=== PATIENT | male | born 1980 | race Hispanic/Latino ===

== ENCOUNTER 2018-04-23 15:03 | Inpatient (IN) | payer BC, OTHER ==
[~2018-04-23] VITALS: Ht 175.3 cm; Wt 76.7 kg
[2018-04-23] MEDS ORDERED: SODIUM CHLORIDE 0.9% 1000ML 1,000 ML IV ONE (15:40)
[2018-04-23] MEDS ORDERED: ONDANSETRON HCL 4 MG/2 ML VIAL ONE (15:40)
[2018-04-23] MEDS ORDERED: MORPHINE SULFATE 4 MG/1ML SYG ONE ×2 (15:40→17:48)
[2018-04-23 16:07] LABS: BASOPHILS % (AUTO) 0.1 % (0.0-5.0); EOSINOPHILS % (AUTO) 0.1 % (0.0-8.0); HEMATOCRIT 26.8 % (42-54); LYMPHOCYTES % (AUTO) 7.5 % (21.0-51.0); MEAN CORPUSCULAR HEMOGLOBIN 30.3 pg (27.0-33.0); MEAN CORPUSCULAR HGB CONC 33.2 g/dL (32.0-36.0); MEAN CORPUSCULAR VOLUME 91.2 fL (79-99); MONOCYTES % (AUTO) 8.2 % (3.0-13.0); NEUTROPHILS % (AUTO) 84.1 % (40.0-77.0); NUCLEATED RED BLOOD CELLS 0.1 % (0.0-0.19); PLATELET COUNT (AUTO) 532 K/uL (130-400); RED BLOOD CELL COUNT(AUTO) 2.94 MIL/uL (4.50-6.20); RED CELL DISTRIBUTION WIDTH 14.9 % (11.0-15.5)
[2018-04-23] MEDS ORDERED: LIDOCAINE HCL 1% 20 ML VIAL ONE (16:10)
[2018-04-23 16:23] LABS: ALBUMIN 1.8 g/dL (3.5-5.0); BILIRUBIN,TOTAL 0.2 mg/dL (0.2-1.0); CREATININE 2.7 mg/dL (0.5-1.5); POTASSIUM 3.8 mmol/L (3.5-5.1)
[2018-04-23 17:11] LABS: ERYTHROCYTE SEDIMENTATION RATE 150 MM/HR (0-15)
[2018-04-23] MEDS ORDERED: INSULIN HUMULIN R 100 UNIT/ML 3ML ONE ×2 (17:50→21:20)
[2018-04-23] MEDS ORDERED: ZOSYN 3.375GM+NS 50ML 50 ML IV ONE (18:36)
[2018-04-23] MEDS ORDERED: SODIUM CHLORIDE 0.9% 50 ML IV ONE (18:36)
[2018-04-23 18:40] LABS: ABG BASE EXCESS -6.1 mmol/L (-2.0-3.0); ABG HCO3 19.4 mmol/L (21.0-28.0); ABG OXYGEN SATURATION 97.3 % (95.0-99.0); ABG PCO2 38 mmHg (35-48)
[2018-04-23 20:03] LABS: APPEARANCE BODY FLUID TURBID (CLEAR); BODY FLUID WBC 45540 /cu. mm.; COLOR,BODY FLUID YELLOW (LT YELLOW); SPECIMENTYPE,BODY FLUID SYNOVIAL; TOTAL VOLUME,BODY FLUID 9 mL
[2018-04-23 20:04] LABS: BODY FLUID RBC 2475 /cu. mm.
[2018-04-23] MEDS: SODIUM CHLORIDE 0.9% 1000ML 1,000 ML IV SCH ×2 (20:05→23:04)
[2018-04-23] MEDS ORDERED: ONDANSETRON HCL 4 MG/2 ML VIAL IV PRN (20:15)
[2018-04-23] MEDS ORDERED: ACETAMINOPHEN 325 MG TAB PO PRN (20:15)
[2018-04-23] MEDS ORDERED: VANCOMYCIN 1GM+NS 250ML 250 ML IV SCH (20:15)
[2018-04-23 20:27] LABS: BF LYMPHOCYTE 2 %; BF OTHER CELLS 1
[2018-04-23] MEDS ORDERED: VANCOMYCIN PROTOCOL PER PHARMACY IV SCH (20:45)
[2018-04-23] MEDS: ZOSYN 3.375GM+NS 50ML 50 ML IV SCH (21:00)
[2018-04-23] MEDS ORDERED: VANCOMYCIN 1GM+NS 250ML 250 ML IV ONE (21:32)
[2018-04-23 21:38] VITALS: BP 152/86
[2018-04-23] MEDS ORDERED: METF-444 PO (21:52)
[2018-04-23] MEDS: MORPHINE SULFATE 4 MG/1ML SYG IV PRN (22:21)
[2018-04-23] MEDS: ENOXAPARIN SODIUM 40 MG/0.4 ML SYRINGE SQ SCH (22:21)
[2018-04-23] MEDS: FAMOTIDINE 20MG TAB 20 MG TAB PO SCH (22:21)
[2018-04-23 23:25] VITALS: BP 123/69
[2018-04-24] MEDS: MORPHINE SULFATE 4 MG/1ML SYG IV PRN ×5 (03:36→22:05)
[2018-04-24 03:40] VITALS: BP 161/93
[2018-04-24] MEDS: ZOSYN 3.375GM+NS 50ML 50 ML IV SCH ×3 (04:39→20:44)
[2018-04-24] MEDS: INSULIN HUMULIN R 100 UNIT/ML 3ML SQ SCH ×4 (06:01→20:44)
[2018-04-24] MEDS ORDERED: COMPOUND IV REFRIGERATED 1 EACH IVSOLN MISC PRN (06:45)
[2018-04-24 07:38] LABS: BASOPHILS % (AUTO) 0.3 % (0.0-5.0); EOSINOPHILS % (AUTO) 0.8 % (0.0-8.0); HEMATOCRIT 24.6 % (42-54); LYMPHOCYTES % (AUTO) 17.4 % (21.0-51.0); MEAN CORPUSCULAR HEMOGLOBIN 30.2 pg (27.0-33.0); MEAN CORPUSCULAR HGB CONC 33.9 g/dL (32.0-36.0); MEAN CORPUSCULAR VOLUME 88.9 fL (79-99); MONOCYTES % (AUTO) 8.5 % (3.0-13.0); PLATELET COUNT (AUTO) 501 K/uL (130-400); RED BLOOD CELL COUNT(AUTO) 2.76 MIL/uL (4.50-6.20); RED CELL DISTRIBUTION WIDTH 14.6 % (11.0-15.5); WHITE BLOOD COUNT (AUTO) 7.1 K/uL (4.8-10.8)
[2018-04-24 07:43] LABS: CREATININE 1.7 mg/dL (0.5-1.5); POTASSIUM 3.5 mmol/L (3.5-5.1)
[2018-04-24 07:50] LABS: ALBUMIN 1.5 g/dL (3.5-5.0); BILIRUBIN,TOTAL 0.2 mg/dL (0.2-1.0); TOTAL PROTEIN, SERUM 7.6 g/dL (6.0-8.3)
[2018-04-24] MEDS: HYDRALAZINE HCL 20 MG/ML VIAL IV PRN (07:55)
[2018-04-24 08:03] LABS: HEMOGLOBIN A1C 6.9 % (4.0-6.0)
[2018-04-24 08:55] VITALS: BP 122/75
[2018-04-24] MEDS: ENOXAPARIN SODIUM 40 MG/0.4 ML SYRINGE SQ SCH ×2 (08:56→20:44)
[2018-04-24] MEDS: FAMOTIDINE 20MG TAB 20 MG TAB PO SCH ×2 (08:56→20:44)
[2018-04-24] MEDS: LISINOPRIL 10 MG TABLET PO SCH (08:57)
[2018-04-24] MEDS: SODIUM CHLORIDE 0.9% 1000ML 1,000 ML IV SCH ×3 (09:25→20:45)
[2018-04-24 12:08] VITALS: BP 147/91
--- NOTE | 2018-04-24 12:18 | NUR ---
DCP CM met with pt discussed dc plans. Pt is independent prior to admission, lives at home with mother and step dad. Pt denies any equipments/services. Pt is a self pay, HAC assisting, states used to go to [facility] but it has been a while, pt give community resources lists as well has [employer] program for cheaper medications. Pt stated Dr Shook from [place] did his right knee surgery. Pt feels safe to go back home, sister Carolin able to assist with transportation as necessary, pt states plans to go back to [facility] vs [facility] for MD fuller/catherine once stable. DC plan to home. CM to cont to follow up. Addendum: 04/24/18 at 1222 by SHAWNEE GONSALVES LVN CM Amended: Links added.
--- NOTE | 2018-04-24 15:57 | NUR ---
Nutrition Intervention: Nutrition consult due to noncompliant dm, wt. loss, diabetic teaching. Pt. admitted with Dx of right knee sepsis, hardware infection, uncontrolled NIDDM. Pt. on 60gm CCD diet with poor p.o. intake(<25%), per pt. Pt. reports +Nausea. Pt. on Zofran for upper GI distress. Pt. reports was weighing 171# on 04/21/18. Pt. with 2#(1% of UBW) wt. loss in 3 days. Labs reviewed(Alb 1.5, BUN 35, Creat 1.7, GFR 48, BG 125, HgbA1c 6.9%). Noted renal labs improving. LBM: 04/23/18, per pt. SR-21, right knee incision. BMI: 25, normal. Pt. reports has been educated on diabetic diet in the past. Pt. refused diet education but allowed me to leave diet info. with him. Recommendations: 1) Continue current diet. 2) Rec. Glucerna supp. QD due to poor p.o. intake. 3) Continue to monitor pt's nutritional status. 4) RD to follow-up in 1-3 days. Addendum: 04/24/18 at [address] Amended: Links added.
[2018-04-24 16:28] VITALS: BP 161/81
[2018-04-24 19:17] VITALS: BP 148/92
--- NOTE | 2018-04-24 20:00 | NUR ---
WOUND CARE. PT REQUESTING DRESSING TO RT KNEE TO BE CHANGED, STATED "LOOKS DIRTY". PURULENT-FOUL ODOR SMELLING DRAINAGE OBSERVED OOZING FROM SITE. PREVIOUS DRESSING RECREATED- SITE CLEANSED WITH NS, PACKED WITH IODOFORM, COVERED WITH 4X4 GAUZE, WRAPPED WITH KERLIX, AND SECURED WITH TAPE. PT TOLERATED WELL.
[2018-04-24] MEDS: VANCOMYCIN 1.25 GM in SODIUM CHLORIDE 0.9% 250 ML IV SCH (20:44)
[2018-04-24 23:33] VITALS: BP 131/79
[2018-04-25] VITALS (7 sets, daily range): BP systolic 146–182; BP diastolic 67–106
[2018-04-25] MEDS: MORPHINE SULFATE 4 MG/1ML SYG IV PRN ×6 (02:09→23:24)
[2018-04-25] MEDS: ZOSYN 3.375GM+NS 50ML 50 ML IV SCH ×3 (05:37→22:09)
[2018-04-25] MEDS: SODIUM CHLORIDE 0.9% 1000ML 1,000 ML IV SCH ×3 (05:37→18:12)
[2018-04-25] MEDS: INSULIN HUMULIN R 100 UNIT/ML 3ML SQ SCH ×4 (06:02→22:10)
[2018-04-25] MEDS: LISINOPRIL 10 MG TABLET PO SCH (09:57)
[2018-04-25] MEDS: FAMOTIDINE 20MG TAB 20 MG TAB PO SCH ×2 (09:57→22:08)
[2018-04-25] MEDS: ENOXAPARIN SODIUM 40 MG/0.4 ML SYRINGE SQ SCH ×2 (09:58→22:09)
[2018-04-25] MEDS: HYDRALAZINE HCL 20 MG/ML VIAL IV PRN (16:52)
[2018-04-25] MEDS ORDERED: LORAZEPAM 2 MG/ML 1 ML VIAL IVP PRN (19:45)
[2018-04-25] MEDS ORDERED: LORAZEPAM 2 MG/ML 1 ML VIAL ONE (19:51)
[2018-04-25] MEDS: VANCOMYCIN 1.25 GM in SODIUM CHLORIDE 0.9% 250 ML IV SCH (22:09)
[2018-04-26] MEDS: SODIUM CHLORIDE 0.9% 1000ML 1,000 ML IV SCH (01:30)
--- NOTE | 2018-04-26 02:30 | NUR ---
PT LEAVING AMA. PT WALKED OUT OF ROOM DRIPPING BLOOD FROM ARM, WHEN QUESTIONED ABOUT IV PT STATED "I TOOK IT OUT MYSELF, I'M LEAVING, I DON'T WANT TO BE HERE I'VE BEEN HERE ALL DAY AND NO-ONE HAS DONE ANYTHING FOR ME". PT EDUCATED BY NURSE THAT HE NEEDS ANTIBIOTIC TREATMENT FOR HIS WOUND, THAT HE NEEDS TO CONTINUE GETTING WOUND CARE, AND THAT WE WERE MANAGING HIS PAIN BEST WE COULD. PT CONTINUES TO STATE "I'M LEAVING I'LL PICK SOMETHING UP SOMEWHERE ELSE". PANFILO FLOWERS MADE AWARE, CAME INTO PT ROOM AND ADVISED PT ON THE RISK FACTORS OF NOT CONTINUING HIS MEDICAL TREATMENT, SEPSIS, AND POSSIBLY . PT VOICED UNDERSTANDING, BUT CONTINUED TO LEAVE THE FACILITY.
== END 2018-04-26 03:14 | disposition left against medical advice (07) | DRG 560 ==
LOC: EDH 15:03 → OBSVTOIN 15:04 → EDHIP 15:04 → 4AH 21:32
PROVIDERS: ADMIT Internal Medicine; ATTEND Internal Medicine
DX: T84.622A Infection and inflammatory reaction due to internal fixation device of right tibia, initial encounter (principal); M00.861 Arthritis due to other bacteria, right knee; E11.65 Type 2 diabetes mellitus with hyperglycemia; I10 Essential (primary) hypertension; Y83.8 Other surgical procedures as the cause of abnormal reaction of the patient, or of later complication, without mention of misadventure at the time of the procedure; Z91.19 Patient's noncompliance with other medical treatment and regimen; Z89.421 Acquired absence of other right toe(s); Y92.89 Other specified places as the place of occurrence of the external cause; Z83.3 Family history of diabetes mellitus
CPT/HCPCS: 36415; 36600; 73562; 73590; 78315; 80053; 82803; 82945; 82948; 83036; 84157; 85025; 85651; 87040; 87070; 87071; 87076; 87077; 87186; 87205; 89051; A9503; G0378; J0360; J1650; J1815; J2060; J2270; J2405; J2543; J3370; J7030

== ENCOUNTER 2018-12-15 16:40 | Emergency (ER) | payer SELFPAY ==
[~2018-12-15 16:40] MED LIST: METF-444 PO
[2018-12-15] MEDS ORDERED: KETOROLAC TROMETHAMINE 15MG/ML ONE (17:14)
[2018-12-15] MEDS ORDERED: DiphenhydrAMINE HCL 50 MG/ML VIAL ONE (17:14)
[2018-12-15] MEDS ORDERED: PROCHLORPERAZINE EDISYLATE 10 MG/2 ML VIAL ONE (17:14)
[2018-12-15] MEDS ORDERED: SODIUM CHLORIDE 0.9% 1000ML 1,000 ML IV ONE (17:15)
[2018-12-15 17:16] LABS: BASOPHILS % (AUTO) 0.2 % (0.0-5.0); HEMATOCRIT 31.2 % (42-54); LYMPHOCYTES % (AUTO) 4.8 % (21.0-51.0); MEAN CORPUSCULAR HEMOGLOBIN 31.3 pg (27.0-33.0); MEAN CORPUSCULAR HGB CONC 34.7 g/dL (32.0-36.0); MEAN CORPUSCULAR VOLUME 90.2 fL (79-99); MONOCYTES % (AUTO) 0.8 % (3.0-13.0); NEUTROPHILS % (AUTO) 94.2 % (40.0-77.0); PLATELET COUNT (AUTO) 342 K/uL (130-400); RED BLOOD CELL COUNT(AUTO) 3.46 MIL/uL (4.50-6.20); RED CELL DISTRIBUTION WIDTH 13.9 % (11.0-15.5); WHITE BLOOD COUNT (AUTO) 8.7 K/uL (4.8-10.8)
[2018-12-15 17:29] LABS: CREATININE 3.2 mg/dL (0.5-1.5); POTASSIUM 4.5 mmol/L (3.5-5.1)
[2018-12-15 17:34] LABS: ALBUMIN 3.7 g/dL (3.5-5.0); BILIRUBIN,TOTAL 0.3 mg/dL (0.2-1.0)
[2018-12-15 18:04] LABS: APPEARANCE,URINE Clear (CLEAR); BILIRUBIN,URINE Negative (NEGATIVE); COLOR,URINE Yellow (YELLOW); GLUCOSE, URINE (UA) 250 mg/dL (NEGATIVE); KETONES,URINE Trace mg/dL (NEGATIVE); LEUKOCYTE ESTERASE ,URINE Negative (NEGATIVE); NITRATE,URINE Negative (NEGATIVE); OCCULT BLOOD,URINE Small (NEGATIVE); PROTEIN,URINE 300 mg/dL (NEGATIVE)
[2018-12-15 18:11] LABS: AMPHET/METH SCREEN,URINE NEGATIVE (NEGATIVE); BARBITURATE SCREEN, URINE NEGATIVE (NEGATIVE); BENZODIAZEPINES SCREEN,URINE NEGATIVE (NEGATIVE); CANNABINOID SCREEN,URINE NEGATIVE (NEGATIVE); COCAINE SCREEN,URINE POSITIVE (NEGATIVE); OPIATE SCREEN,URINE POSITIVE (NEGATIVE); PHENCYCLIDINE SCREEN,URINE NEGATIVE (NEGATIVE)
[2018-12-15 18:18] LABS: WBC,URINE 0-1 /HPF (0-1)
[2018-12-15 18:19] LABS: BACTERIA,URINE Few /HPF (None Seen); SQUAMOUS EPITHELIAL CELL,UR Few /HPF (0-2)
[2018-12-15 18:20] LABS: COARSE GRANULAR CASTS,URINE 0-2 /LPF (None Seen)
== END 2018-12-15 19:35 | disposition home or self-care (01) ==
LOC: EDH 16:40
DX: S20.212A Contusion of left front wall of thorax, initial encounter (principal); E11.9 Type 2 diabetes mellitus without complications; Y08.89XA Assault by other specified means, initial encounter; Y93.89 Activity, other specified; Y92.89 Other specified places as the place of occurrence of the external cause; Y99.8 Other external cause status
CPT/HCPCS: 36415; 71110; 80053; 80305; 81001; 83690; 85025; 96361; 96374; 96375; 99285; J0780; J1200; J1885; J7030

== ENCOUNTER 2019-08-11 15:16 | Emergency (ER) | payer OTHER ==
[2019-08-11] MEDS ORDERED: ONDANSETRON HCL 4 MG/2 ML VIAL ONE (15:41)
[2019-08-11 15:51] LABS: BASOPHILS % (AUTO) 0.1 % (0.0-5.0); HEMATOCRIT 29.8 % (42-54); LYMPHOCYTES % (AUTO) 1.7 % (21.0-51.0); MEAN CORPUSCULAR HEMOGLOBIN 30.9 pg (27.0-33.0); MEAN CORPUSCULAR HGB CONC 34.2 g/dL (32.0-36.0); MEAN CORPUSCULAR VOLUME 90.3 fL (79-99); MONOCYTES % (AUTO) 1.1 % (3.0-13.0); NEUTROPHILS % (AUTO) 95.9 % (40.0-77.0); PLATELET COUNT (AUTO) 607 K/uL (130-400); RED CELL DISTRIBUTION WIDTH 11.7 % (11.0-15.5); WHITE BLOOD COUNT (AUTO) 27.6 K/uL (4.8-10.8)
[2019-08-11 16:00] LABS: CREATININE 2.5 mg/dL (0.5-1.5); POTASSIUM 4.5 mmol/L (3.5-5.1)
[2019-08-11 16:02] LABS: INR 1.07 (0.85-1.15); PARTIAL THROMBOPLASTIN TIME 31.4 SEC (26.3-35.5); PROTHROMBIN TIME 11.5 SEC (9.6-11.6)
[2019-08-11 16:04] LABS: BILIRUBIN,TOTAL 0.4 mg/dL (0.2-1.0)
[2019-08-11 16:58] LABS: CRP QUANTITATIVE 237.7 mg/L (0.00-9.0)
[2019-08-11 17:11] LABS: APPEARANCE,URINE Turbid (CLEAR); BILIRUBIN,URINE Moderate (NEGATIVE); COLOR,URINE Dark Yellow (YELLOW); GLUCOSE, URINE (UA) 250 mg/dL (NEGATIVE); KETONES,URINE Trace mg/dL (NEGATIVE); LEUKOCYTE ESTERASE ,URINE Trace (NEGATIVE); NITRATE,URINE Negative (NEGATIVE); OCCULT BLOOD,URINE Moderate (NEGATIVE); PROTEIN,URINE >=1000 mg/dL (NEGATIVE)
[2019-08-11 17:18] LABS: AMPHET/METH SCREEN,URINE NEGATIVE (NEGATIVE); BARBITURATE SCREEN, URINE NEGATIVE (NEGATIVE); BENZODIAZEPINES SCREEN,URINE NEGATIVE (NEGATIVE); CANNABINOID SCREEN,URINE NEGATIVE (NEGATIVE); COCAINE SCREEN,URINE POSITIVE (NEGATIVE); OPIATE SCREEN,URINE NEGATIVE (NEGATIVE); PHENCYCLIDINE SCREEN,URINE NEGATIVE (NEGATIVE)
[2019-08-11 17:23] LABS: MUCUS,URINE Moderate LPF (None Seen); SQUAMOUS EPITHELIAL CELL,UR Few /HPF (0-2)
[2019-08-11 17:24] LABS: AMORPHOUS SEDIMENT,UR Moderate /LPF (None Seen); BACTERIA,URINE Few /HPF (None Seen); HYALINE CASTS, URINE 0-1 /LPF (0-1 /LPF)
== END 2019-08-11 18:19 | disposition left against medical advice (07) ==
LOC: EDH 15:16
DX: E13.10 Other specified diabetes mellitus with ketoacidosis without coma (principal); M86.9 Osteomyelitis, unspecified; F14.10 Cocaine abuse, uncomplicated; R11.2 Nausea with vomiting, unspecified
CPT/HCPCS: 36415; 73660; 80053; 80305; 81001; 82010; 82150; 82550; 83690; 84100; 84484; 85025; 85610; 85651; 85730; 86140; 93005; 96374; 99285; J2405